=== PATIENT | female | born 1975 | race Caucasian/White ===

== ENCOUNTER 2020-08-18 16:38 | Emergency (ER) | payer OTHER ==
[~2020-08-18] VITALS: Ht 170.2 cm; Wt 96.2 kg
[2020-08-18] MEDS ORDERED: ALDACTONE50 MG PO (17:42)
[2020-08-18] MEDS ORDERED: CYMBALTA60 MG PO (17:42)
[2020-08-18] MEDS ORDERED: LYRICA100 MG PO (17:43)
[2020-08-18] MEDS ORDERED: ARAVA20 MG PO (17:43)
[2020-08-18] MEDS ORDERED: BYSTOLIC20 MG PO (17:43)
[2020-08-18] MEDS ORDERED: NIFEDIPINE ER60 M1 PO (17:44)
[2020-08-18] MEDS ORDERED: PLAQUENIL200 MG PO (17:44)
[2020-08-18] MEDS ORDERED: HYDRALAZINE HCL10 MG PO (17:45)
[2020-08-18] MEDS ORDERED: OXYCODONE HCL5 MG PO (17:46)
[2020-08-18] MEDS ORDERED: XELJANZ10 MG PO (17:46)
[2020-08-18] MEDS ORDERED: ZOFRAN4 MG PO (17:48)
[2020-08-18] MEDS ORDERED: ROBAXIN100 MG/1 M PO (17:48)
[2020-08-18] MEDS ORDERED: CYCLOBENZAPRINE10 MG PO (19:50)
== END 2020-08-18 20:08 | disposition home or self-care (01) ==
LOC: ED 16:38
DX: G89.29 Other chronic pain (principal); M54.5 Low back pain; I10 Essential (primary) hypertension; Z88.2 Allergy status to sulfonamides; Z79.899 Other long term (current) drug therapy
CPT/HCPCS: 99283

== ENCOUNTER 2022-04-04 19:33 | Emergency (ER) | payer OTHER ==
[~2022-04-04] VITALS: Ht 170.2 cm; Wt 93.0 kg
[~2022-04-04 19:33] MED LIST: ALDACTONE50 MG PO; ARAVA20 MG PO; BYSTOLIC20 MG PO; CYCLOBENZAPRINE10 MG PO; CYMBALTA60 MG PO; HYDRALAZINE HCL10 MG PO; LYRICA100 MG PO; NIFEDIPINE ER60 M1 PO; OXYCODONE HCL5 MG PO; PLAQUENIL200 MG PO; ROBAXIN100 MG/1 M PO; XELJANZ10 MG PO; ZOFRAN4 MG PO
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
[2022-04-04] MEDS ORDERED: CEPHALEXIN500 M1 PO (21:31)
== END 2022-04-04 21:58 | disposition home or self-care (01) ==
LOC: ED 19:33
DX: S39.82XA Other specified injuries of lower back, initial encounter (principal); W93.8XXA Exposure to other excessive cold of man-made origin, initial encounter; Z23 Encounter for immunization
CPT/HCPCS: 90471; 90715; 99283-25; A9270

== ENCOUNTER 2022-07-02 10:59 | Emergency (ER) | payer BC ==
[~2022-07-02] VITALS: Ht 170.2 cm; Wt 93.1 kg
[~2022-07-02 10:59] MED LIST changes: +CEPHALEXIN500 M1 PO
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
[2022-07-02] MEDS ORDERED: INDAPAMIDE1.25 MG PO (11:23)
[2022-07-02] MEDS ORDERED: PROMETHAZINE HC25 M1 PO (13:34)
--- NOTE | 2022-07-03 17:23 | EKG ---
[facility] [address] [facility] [place] [address] Signed Normal sinus rhythm Nonspecific T wave abnormality Prolonged QT Abnormal ECG No previous ECGs available Confirmed by Micki Tao MD () on 07/03/2022 5:23:12 PM Electronically Signed By: MICKI TAO MD 07/03/221722 PATIENT NAME: WILLIAM GREENBERG Electrocardiogram DATE OF : 77 PHYSICIAN: MICKI TAO MD REPORT #: [id number] REPORT IS CONFIDENTIAL AND NOT TO BE RELEASED WITHOUT AUTHORIZATION
== END 2022-07-02 14:47 | disposition home or self-care (01) ==
LOC: ED 10:59
DX: R11.2 Nausea with vomiting, unspecified (principal); R19.7 Diarrhea, unspecified; M06.9 Rheumatoid arthritis, unspecified; I10 Essential (primary) hypertension; Z88.2 Allergy status to sulfonamides; Z79.899 Other long term (current) drug therapy
CPT/HCPCS: 36415; 80053; 83690; 84484; 85025; 93005; 93010; 96374; 96375; 99285-25; J1790; J2405